=== PATIENT | female | born 1995 | race Caucasian/White ===

== ENCOUNTER 2019-02-13 02:17 | Emergency (ER) | payer SELFPAY ==
[2019-02-13] MEDS ORDERED: ACETAMINOPHEN 325 MG TABLET PO ONE (02:51)
[2019-02-13 03:40] LABS: A TYPE INFLUENZA AG NEGATIVE (NEGATIVE); B INFLUENZA AG POSITIVE (NEGATIVE)
--- NOTE | 2019-02-13 05:15 | ER Document Report ---
ED General - General Chief Complaint: Flu Symptoms Stated Complaint: COLD SYMPTOMS Time Seen by Provider: 02/13/19 04:52 TRAVEL OUTSIDE OF THE [place] IN LAST 30 DAYS: No - HPI Notes: Ms. Norman is a 23-year-old female previously healthy presenting with flulike symptoms of 4 days duration. Primary complaint at this time is nasal congestion. Slight dull headache, intermittent tactile fever and mild myalgias. No nausea vomiting or diarrhea. Dry cough. Last menses 2 weeks ago described as normal. Patient did not take flu immunization. Occasional cigarette smoker. Denies abuse of drugs or alcohol. - Related Data Allergies/Adverse Reactions: No Known Allergies Allergy (Verified 02/13/19 02:52) Past Medical History - General Information source: Patient - Social History Smoking Status: Current Every Day Smoker Family History: Reviewed & Not Pertinent Patient has suicidal ideation: No Patient has homicidal ideation: No Review of Systems - Review of Systems Notes: Constitutional: As per HPI. HENT: As per HPI. Eyes: Negative for visual changes. Cardiovascular: Negative for chest pain. Respiratory: As per HPI. Gastrointestinal: Negative for abdominal pain, vomiting or diarrhea. Genitourinary: Negative for dysuria. Musculoskeletal: Negative for back pain. Skin: Negative for rash. Neurological: Negative for headaches, weakness or numbness. 10 point ROS negative except as marked above and in HPI. Physical Exam - Vital signs Vitals: Temp Pulse BP Pulse Ox 98.6 F 93 112/70 95 02/13/19 02:21 02/13/19 02:21 02/13/19 02:21 02/13/19 02:21 - Notes Notes: GENERAL: Well-developed well-nourished appearing in no acute distress. SKIN: Slightly flushed. Good turgor no rashes. HEAD: Normocephalic atraumatic. EYES: PERRLA. EOMI. Conjunctivae bilaterally injected. EARS: CANALS AND TMS CLEAR. NOSE: CLEAR drainage bilaterally. MOUTH: Moist mucosa. Good dentition. No stridor or edema. No drooling. NECK: Supple. No masses or thyromegaly. No adenopathy. Carotids 2+ without bruits. No JVD. BACK: Symmetrical without tenderness. CHEST: Respirations unlabored. Breath sounds clear and symmetrical. Slight dry cough. HEART: Regular rhythm. No murmur gallop or rub. ABDOMEN: Soft nontender without masses, organomegaly or rebound. Bowel sounds normally active. No bruits. GENITALIA: Deferred. EXTREMITIES: No edema. No calf tenderness. Cap refill less than 1.5 seconds. Dorsalis pedis and posterior tibial pulses 3+ and symmetrical. NEUROLOGICAL: GCS 15. Alert and oriented x3. Normal gait. Fluent speech. Cranial nerves II through XII intact. Sensorimotor and cerebellar normal. Normal tone. PSYCHIATRIC: Appropriate affect. Course - Re-evaluation Re-evalutation: 02/13/19 05:13 Rapid influenza screen positive for influenza B negative for influenza A. We discussed possible use of Tamiflu but I advised against this because her symptoms been present more than 72 hours and I feel her benefit would be marginal at best. Patient is in agreement with this. We going to prescribe some Tessalon and Sudafed and asked her to increase oral fluids and use Tylenol PRN. - Vital Signs Vital signs: Temp Pulse Resp BP Pulse Ox 98.6 F 93 112/70 95 02/13/19 02:21 02/13/19 02:21 02/13/19 02:21 02/13/19 02:21 Discharge - Discharge Clinical Impression: Influenza B Condition: Stable Disposition: HOME, SELF-CARE Instructions: Acetaminophen, Influenza ([facility]) [id number] Additional Instructions: Increase oral fluids. Take prescribed medicines as directed. Tylenol as needed. Return here as needed for new or worsening symptoms: Pain that is worsening or unimproved Uncontrolled vomiting High fever or shaking chills Overall worsening Follow-up with referral physician if unimproved within the next 3 to 5 days. Prescriptions: Benzonatate [Tessalon Perles 100 mg Capsule] 100 mg PO Q8HP PRN #40 capsule PRN Reason: Pseudoephedrine HCl [Sudafed 12 Hour] 120 mg PO Q12 #20 tablet.er Forms: Smoking Cessation Education
[2019-02-13 05:58] VITALS: BP 116/71
== END 2019-02-13 05:59 | disposition home or self-care (01) ==
LOC: ER 02:17
DX: J10.1 Influenza due to other identified influenza virus with other respiratory manifestations (principal); R09.81 Nasal congestion; R51 Headache; M79.10 Myalgia, unspecified site; F17.210 Nicotine dependence, cigarettes, uncomplicated; R23.2 Flushing; R09.89 Other specified symptoms and signs involving the circulatory and respiratory systems
CPT/HCPCS: 87070; 87804; 87880; 99283